=== PATIENT | female | born 1940 | race Two or more races ===

== ENCOUNTER 2020-10-26 05:57 | Day surgery (SDC) | payer OTHER ==
[~2020-10-26 05:57] MED LIST: COZAAR25 MG PO; SIMVAST PO; TOPROL XL50 M1 PO
== END 2020-10-26 16:35 | disposition home or self-care (01) ==
LOC: CIR.AMB 05:57
PROVIDERS: ATTEND Orthopaedic Surgery Hand Surgery
DX: S52.531A Colles' fracture of right radius, initial encounter for closed fracture (principal); Z20.822 Contact with and (suspected) exposure to COVID-19
CPT/HCPCS: 25609; 25118; 25280; C1776